=== PATIENT | female | born 1980 | race Caucasian/White ===

== ENCOUNTER 2017-05-13 23:13 | Emergency (ER) | payer OTHER ==
[2017-05-13 23:30] VITALS: BMI 24.3
[2017-05-13 23:35] VITALS: BP 129/67; PULSE 67; RESP 18; TEMP 98.3; O2SAT 99
[2017-05-13] MEDS ORDERED: Lidocaine 1% Inj (20ml) ONE (23:56)
--- NOTE | 2017-05-14 00:16 | ED PDOC ---
Arrival/HPI - General Chief Complaint: Finger,Hand,&Wrist Time Seen by Provider: 05/13/17 23:42 Historian: Patient, Other (significant) - History of Present Illness Narrative History of Present Illness (Text): you were treated in the ED today for hx of tetanus uptodate in the past 5 years , accidental cut with kitchen knife to the left 3rd finger and now with and now having right upper abdomen discomfort but otherwise without any nausea/vomiting/ headache/dizziness/difficulty breathing/chest pain/abdomen pain/numbness/ tingling/loss of limb function/pain with urination. 05/14/17 00:14 05/14/17 00:26 Time/Duration: 24 hours Symptom Onset: Gradual Symptom Course: Intermittent Quality: Aching Severity Level: 1 Activities at Onset: Rest Context: Sitting Past Medical History - Provider Review Nursing Documentation Reviewed: Yes - Travel History Have you recently traveled outside [place] w/in the past 3 mons?: No - Psychiatric Hx Substance Use: No - Surgical History Other/Comment: breast augmentation - Anesthesia Hx Anesthesia: Yes Hx Anesthesia Reactions: No Family/Social History - Physician Review Nursing Documentation Reviewed: Yes Family/Social History: No Known Family HX Smoking Status: Never Smoked Hx Alcohol Use: No Hx Substance Use: No Allergies/Home Meds Allergies/Adverse Reactions: Allergies No Known Allergies Allergy (Verified 05/13/17 23:30) Review of Systems - Physician Review All systems were reviewed & negative as marked: Yes - Review of Systems Constitutional: Normal Eyes: Normal ENT: Normal Respiratory: Normal Cardiovascular: Normal Gastrointestinal: Abdominal Pain Genitourinary Female: Normal Musculoskeletal: Other (cut to the left finger) Skin: Normal Neurological: Normal Endocrine: Normal Hemo/Lymphatic: Normal Psychiatric: Normal Physical Exam Vital Signs Reviewed: Yes Vital Signs Temp Pulse Resp BP Pulse Ox 05/13/17 23:35 98.3 F 67 18 129/67 99 Temperature: Febrile Blood Pressure: Hypertensive Pulse: Regular Respiratory Rate: Normal Appearance: Positive for: Well-Appearing, Non-Toxic, Comfortable Pain Distress: None Mental Status: Positive for: Alert and Oriented X 3 - Systems Exam Head: Present: Atraumatic, Normocephalic Pupils: Present: PERRL Extroacular Muscles: Present: EOMI Conjunctiva: Present: Normal Ears: Present: Normal Mouth: Present: Moist Mucous Membranes Pharnyx: Present: Normal Nose (External): Present: Atraumatic Nose (Internal): Present: Normal Inspection Neck: Present: Normal Range of Motion Respiratory/Chest: Present: Clear to Auscultation, Good Air Exchange Cardiovascular: Present: Regular Rate and Rhythm Abdomen: Present: Normal Bowel Sounds. No: Tenderness, Distention, Peritoneal Signs, Rebound, Guarding, McBurney's Point Tender, Rovsing's Sign Present, Hernias, Feeding Tubes, Ostomy Tubes, Mass/Organomegaly, Scars, Other Back: Present: Normal Inspection Upper Extremity: Present: Normal Inspection Lower Extremity: Present: Normal Inspection, Other (except for left 3rd finger cut on inside of finger 2.5mc to muscle but with good range of motion/warm/ sensation/good pulses without bony tenderness.) Neurological: Present: GCS=15, CN II-XII Intact, Speech Normal, Motor Func Grossly Intact Skin: Present: Warm, Normal Color Psychiatric: Present: Alert, Oriented x 3, Normal Insight, Normal Concentration Medical Decision Making ED Course and Treatment: you were treated in the ED today for hx of tetanus uptodate in the past 5 years , accidental cut with kitchen knife to the left 3rd finger and now with and now having right upper abdomen discomfort but otherwise without any nausea/vomiting/ headache/dizziness/difficulty breathing/chest pain/abdomen pain/numbness/ tingling/loss of limb function/pain with urination. You were otherwise breathing easily, pink moist lips, smiling with your significant other and talking easily, good strength/sensation, alert/oriented, walking easily, clear lungs, no abdomen tenderness, except for left 3rd finger cut on inside of finger 2.5mc to muscle but with good range of motion/warm/sensation/good pulses without bony tenderness thus no acute sign of fracture., no fever temp 98.3, stable heart rate 67, stable breathing rate 18, excellent oxygen level 99% room air, elevated blood pressure 129/67 which we recommend repeat in 2-3 days primary care office to determine further treatment, left 3rd finger cleanse, suture, splint done in the ED with improvement, you didn't want to do test and cautioned for missed diagnosis/complications, counselled to keep wound dry for 2 days, then can shower/wash daily but don't rub wound, then bactracin ointment daily. If any worsening pain, fever, chills, nausea, vomiting, difficulty breathing, numbness, loss of limb function, pain with urination or any medical condition then return to the ED. recommend followup primary care 7 days for wound check and suture removal. recommend keflex as directed for infection prevention. recommend tylenol or motrin as directed for pain control. Reassessment Condition: Improved - Procedure PROCEDURE NOTE (Text): left 3rd finger 2.5cm lac, inside, prepped/draped/local/wound explored and no foriegn body/3-0 ethilon x4, interrupted skin closure, hemostasis, breanna procedure. bacitracin/splint per nursing. 05/14/17 00:47 05/14/17 00:50 Disposition/Present on Arrival - Present on Arrival Any Indicators Present on Arrival: No History of DVT/PE: No History of Uncontrolled Diabetes: No Urinary Catheter: No History of Decub. Ulcer: No History Surgical Site Infection Following: None - Disposition Have Diagnosis and Disposition been Completed?: Yes Diagnosis: Finger laceration Disposition: HOME/ ROUTINE Disposition Time: 00:48 Patient Plan: Discharge Patient Problems: Current Active Problems Problem Status Onset Finger laceration Acute Condition: IMPROVED Discharge Instructions (ExitCare): Laceration Repair With Stitches (DC), Laceration Repair Additional Instructions: you were treated in the ED today for hx of tetanus uptodate in the past 5 years , accidental cut with kitchen knife to the left 3rd finger and now with and now having right upper abdomen discomfort but otherwise without any nausea/vomiting/ headache/dizziness/difficulty breathing/chest pain/abdomen pain/numbness/ tingling/loss of limb function/pain with urination. You were otherwise breathing easily, pink moist lips, smiling with your significant other and talking easily, good strength/sensation, alert/oriented, walking easily, clear lungs, no abdomen tenderness, except for left 3rd finger cut on inside of finger 2.5mc to muscle but with good range of motion/warm/sensation/good pulses without bony tenderness thus no acute sign of fracture., no fever temp 98.3, stable heart rate 67, stable breathing rate 18, excellent oxygen level 99% room air, elevated blood pressure 129/67 which we recommend repeat in 2-3 days primary care office to determine further treatment, left 3rd finger cleanse, suture, splint done in the ED with improvement, you didn't want to do test and cautioned for missed diagnosis/complications, counselled to keep wound dry for 2 days, then can shower/wash daily but don't rub wound, then bactracin ointment daily. If any worsening pain, fever, chills, nausea, vomiting, difficulty breathing, numbness, loss of limb function, pain with urination or any medical condition then return to the ED. recommend followup primary care 7 days for wound check and suture removal. recommend keflex as directed for infection prevention. recommend tylenol or motrin as directed for pain control. Prescriptions: Cephalexin [Keflex] 250 mg PO Q6 3 Days #12 capsule Referrals: Faheem Hicks MD [Primary Care Provider] - Follow up with primary Forms: [facility] ([place]), WORK NOTE
== END 2017-05-14 01:19 | disposition home or self-care (01) ==
LOC: ED 23:13
DX: S61.213A Laceration without foreign body of left middle finger without damage to nail, initial encounter (principal); W26.0XXA Contact with knife, initial encounter